=== PATIENT | female | born 2000 | race Two or more races ===

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

== ENCOUNTER 2020-02-03 13:42 | Emergency (ER) | payer MEDICAID ==
[~2020-02-03] VITALS: Ht 160 cm; Wt 55.0 kg
[2020-02-03 15:57] LABS: BASOPHILS % 0.4 % (0.0-2.0); HEMATOCRIT. 40.5 % (36.0-48.0); HEMOGLOBIN. 13.5 g/dL (12.0-16.0); MEAN CORPUSCULAR HEMOGLOBIN 29.8 pg (28.0-32.0); MEAN CORPUSCULAR VOLUME 89.3 fL (81.0-99.0); MEAN PLATELET VOLUME 7.7 fl (7.4-10.4); MONOCYTES % 6.2 % (2.0-8.0); NEUTROPHILS % 77.4 % (40.0-76.0); PLATELET 224 x1000/uL (130-400); RED BLOOD CELL COUNT 4.54 mill/uL (4.2-5.4); RED CELL DISTRIBUTION WIDTH 13.1 % (11.6-14.6)
[2020-02-03 16:12] LABS: CHLORIDE 103 mEq/L (98-107)
[2020-02-03 16:23] LABS: HCG SCREEN NEGATIVE
[2020-02-03 18:09] VITALS: BP 119/86
== END 2020-02-03 18:15 | disposition home or self-care (01) ==
LOC: ER 14:11
DX: G40.909 Epilepsy, unspecified, not intractable, without status epilepticus (principal); R51.9 Headache, unspecified
CPT/HCPCS: 36415; 80053; 81025; 84703; 85025; 99284

== ENCOUNTER 2022-07-17 15:23 | Emergency (ER) | payer MEDICAID ==
[~2022-07-17] VITALS: Ht 167.6 cm; Wt 64.0 kg
[2022-07-17] MEDS ORDERED: ONDANSETRON HCL 4MG/2ML INJ IV STA (15:27)
[2022-07-17] MEDS ORDERED: SODIUM CHLORIDE 0.9% 1,000 ML IV ONE (15:30)
[2022-07-17] MEDS ORDERED: LEVETIRACETAM 1000MG PREMIX 100 ML IV ONE (15:30)
[2022-07-17 17:31] LABS: HEMATOCRIT. 37.2 % (36.0-48.0); HEMOGLOBIN. 12.2 g/dL (12.0-16.0); MEAN CORPUSCULAR HEMOGLOBIN 29.5 pg (28.0-32.0); MEAN CORPUSCULAR VOLUME 90.1 fL (81.0-99.0); PLATELET 259 x1000/uL (130-400); RED BLOOD CELL COUNT 4.13 mill/uL (4.2-5.4); RED CELL DISTRIBUTION WIDTH 12.6 % (11.6-14.6)
[2022-07-17 17:41] LABS: CHLORIDE 110 mEq/L (98-107)
[2022-07-17 17:51] LABS: ETHANOL BLOOD < 10 mg/dL; HCG SCREEN NEGATIVE
[2022-07-17 18:04] VITALS: BP 90/47
[2022-07-17 19:14] LABS: PLATELET ESTIMATE NORMAL
[2022-07-17] MEDS ORDERED: KEPP500 MT (20:08)
[2022-07-17 20:20] LABS: *AMPHETAMINES SCREEN URINE NEGATIVE (NEGATIVE); *BARBITURATES SCREEN URINE NEGATIVE (NEGATIVE); *BENZODIAZEPINES SCREEN URINE NEGATIVE (NEGATIVE); *COCAINE SCREEN URINE NEGATIVE (NEGATIVE); CANNABINOID URINE SCREEN PRESUMTIVE POSITIVE (NEGATIVE); METHADONE URINE SCREEN NEGATIVE (NEGATIVE); OPIATES URINE SCREEN NEGATIVE (NEGATIVE); PHENCYCLIDINE URINE SCREEN NEGATIVE (NEGATIVE)
== END 2022-07-17 20:25 | disposition home or self-care (01) ==
LOC: ER 15:23
DX: R56.9 Unspecified convulsions (principal); R53.1 Weakness; R42 Dizziness and giddiness
CPT/HCPCS: 36415; 80053; 80305; 80320; 83690; 84703; 85025; 96365; 96375; 99284; J1953; J2405; J7030; Z7610; G0480